=== PATIENT | female | born 2000 | race Caucasian/White ===

== ENCOUNTER 2020-02-11 04:21 | Inpatient (IN) | payer OTHER ==
[2020-02-11] MEDS ORDERED: AMPICILLIN 2,000 MG in SODIUM CHLORIDE 0.9% 100 ML IVPB STA (04:37)
[2020-02-11] MEDS ORDERED: CARBOPROST TROMETHAMINE 250 MCG/ML 1 ML AMP IM PRN (04:37)
[2020-02-11] MEDS ORDERED: LIDOCAINE 0.5% (PF) 5 MG/ML (50 ML SDV) SQ PRN (04:37)
[2020-02-11] MEDS ORDERED: OXYTOCIN 10 UNIT/ML 1 ML VIAL IM PRN (04:37)
[2020-02-11] MEDS ORDERED: METHYLERGONOVINE 0.2 MG/ML 1 ML AMP IM PRN (04:37)
[2020-02-11] MEDS ORDERED: TERBUTALINE 1 MG/ML VIAL SQ PRN (04:37)
[2020-02-11] MEDS: LACTATED RINGERS 1,000 ML IV SCH ×2 (05:33→20:19)
[2020-02-11 06:14] LABS: Basophils % (A) 0 %; Eosinophils # (A) 0.2 k/uL (0-0.7); Eosinophils % (A) 2 %; HCT 37.5 % (34.0-46.0); HGB 12.8 gm/dL (11.4-16.0); Lymphocytes # (A) 1.3 k/uL (1.0-4.8); Lymphocytes % (A) 11 %; MCH 31.5 pg (25.0-35.0); MCHC 34.1 g/dL (31.0-37.0); MCV 92.4 fL (80.0-100.0); Mean Platelet Volume 9.7; Monocytes % (A) 9 %; Neutrophils % (A) 78 %; Platelet Count 140 k/uL (150-450); RBC 4.06 m/uL (3.80-5.40); RDW 13.1 % (11.5-15.5); WBC 11.6 k/uL (4.0-11.0)
[2020-02-11] MEDS ORDERED: BENZOCAINE/MENTHOL SPRAY 1 GM/SPRAY AEROSOL TOPICAL PRN (07:59)
[2020-02-11] MEDS ORDERED: HYDROCORTISONE 2.5% RECTAL CREAM 30 GM TUBE RECTAL PRN (07:59)
[2020-02-11] MEDS ORDERED: ZOLPIDEM 5 MG TAB PO PRN (07:59)
[2020-02-11] MEDS ORDERED: SIMETHICONE 80 MG CHEWABLE PO PRN (07:59)
[2020-02-11] MEDS ORDERED: diphenhydrAMINE 25 MG CAP PO PRN (07:59)
[2020-02-11] MEDS ORDERED: diphenhydrAMINE 50 MG/ML 1 ML VIAL IVP PRN ×2 (07:59)
[2020-02-11] MEDS ORDERED: WITCH HAZEL 1 EACH MED..PAD TOPICAL PRN (07:59)
[2020-02-11] MEDS ORDERED: ACETAMINOPHEN TAB 325 MG TAB PO PRN (07:59)
[2020-02-11] MEDS ORDERED: LANOLIN CREAM 5 GM TUBE TOPICAL PRN (07:59)
[2020-02-11] MEDS ORDERED: diphenhydrAMINE 50 MG CAP PO PRN (07:59)
[2020-02-11] MEDS ORDERED: IBUPROFEN 600 MG TAB PO PRN (07:59)
[2020-02-11] MEDS ORDERED: OXYTOCIN 20 UNITS/1000 ML NS 1,000 ML IV SCH (08:00)
--- NOTE | 2020-02-11 08:01 | P.HPOB ---
History of Present Illness H&P Date: 02/11/20 Chief Complaint: Intrauterine term: Active labor Paola is a 19-year-old G 2 P0 at 39 and 6. Her Precis course has been unremarkable other than a cord plexus cyst which resolved by 25 weeks. Otherwise she relatesissues or problems her to be strep status is positive and will receive antibiotics prophylactically. Blood type is A+ Rh antibody was negative, rubella was immune. She is in active labor and had plans to use epidural but went very rapidly from 4 cm to complete. heart tones show a category 1 tracing and all questions were answered for her. Past Medical History Past Medical History: No Reported History History of Any Multi-Drug Resistant Organisms: None Reported Past Surgical History: No Surgical Hx Reported Past Anesthesia/Blood Transfusion Reactions: No Reported Reaction Past Psychological History: No Psychological Hx Reported Smoking Status: Current every day smoker Past Alcohol Use History: None Reported Past Drug Use History: None Reported - Past Family History Father Family Medical History: No Reported History Medications and Allergies Home Medications Medication Instructions Recorded Confirmed Type Pnv,Calcium 72/Iron/Folic Acid 1 tab PO DAILY 02/11/20 02/11/20 History [ Plus Tablet] Allergies Allergy/AdvReac Type Severity Reaction Status Date / Time No Known Allergies Allergy Verified 02/11/20 04:23 Exam Osteopathic Statement: *. No significant issues noted on an osteopathic structural exam other than those noted in the History and Physical/Consult. Vital Signs Temp Pulse Resp BP Pulse Ox 02/11/20 05:26 96.7 F L 87 16 136/74 97 02/11/20 04:49 96.7 F L 87 16 136/74 97 Intake and Output 02/10/20 02/11/20 02/11/20 22:59 06:59 14:59 Other: # Voids 2 Weight 71.668 kg - OBG Physical Exam Breast: both: normal (no masses) Abdomen: bowel sounds normal, no diffuse tenderness, no bruit present, no guarding noted, no hepatomegaly, no splenomegaly, no mass Vulva: both: normal Vagina: normal moisture, no discharge Cervix: no lesion, no discharge Uterus: normal size, normal contour Adnexa: both: normal Anus/Rectum: normal perianal skin, no rectal mass, no hemorrhoids, heme negative Results Result Diagrams: 02/11/20 05:57 Abnormal Lab Results - Last 24 Hours (Table) 02/11/20 Range/Units 05:57 WBC 11.6 H (4.0-11.0) k/uL Plt Count 140 L (150-450) k/uL Neutrophils # 9.0 H (1.3-7.7) k/uL
--- NOTE | 2020-02-11 08:02 | P.PROBDLV ---
Vaginal Delivery Note - . Vaginal Delivery Note: Paola progressed complete and pushing with spontaneous vaginal delivery of a viable male over a second-degree midline laceration. Following delivery of the head a nuchal cord 1 was noted and easily reduced. Baby was delivered from left occiput anterior position. Once baby was fully delivered mouth nares were bulb suctioned and baby was placed on mother's abdomen where the umbilical cord was allowed to pulsate for 45 seconds prior to clamping and cutting. Nursery personnel was present and assumed care. Placenta was then delivered intact Pitocin was added to the IV. Laceration was then repaired with 3-0 Vicryl following 1% Xylocaine for analgesia. Both mother and baby are stable following delivery. scores are pending but weight was 6 lbs. 5 oz.
[2020-02-11] MEDS: SENNOSIDES-DOCUSATE SODIUM 1 EACH TAB PO SCH ×2 (20:05→21:00)
[2020-02-11] MEDS: AMPICILLIN 1,000 MG in SODIUM CHLORIDE 0.9% 50 ML IVPB SCH (20:20)
[2020-02-12 06:54] LABS: Basophils % (A) 0 %; Eosinophils # (A) 0.2 k/uL (0-0.7); Eosinophils % (A) 1 %; HCT 36.5 % (34.0-46.0); HGB 12.5 gm/dL (11.4-16.0); Lymphocytes # (A) 2.3 k/uL (1.0-4.8); Lymphocytes % (A) 20 %; MCH 31.8 pg (25.0-35.0); MCHC 34.3 g/dL (31.0-37.0); MCV 92.6 fL (80.0-100.0); Mean Platelet Volume 9.8; Monocytes # (A) 1.2 k/uL (0-1.0); Monocytes % (A) 10 %; Neutrophils # (A) 8.1 k/uL (1.3-7.7); Neutrophils % (A) 68 %; Platelet Count 143 k/uL (150-450); RBC 3.95 m/uL (3.80-5.40); RDW 12.9 % (11.5-15.5); WBC 11.9 k/uL (4.0-11.0)
--- NOTE | 2020-02-12 08:31 | P.PNOBGVD ---
Subjective - Subjective Principal diagnosis: Status post vaginal delivery day #1 Interval history: Patient is doing okay. Lochia is decreasing. Pain is well-controlled. Baby is bottle feeding. Patient reports: Reports appetite normal, Reports voiding normally, Reports pain well controlled, Reports ambulating normally : doing well, bottle feeding Objective - Latest Vital Signs Latest vital signs: Vital Signs Temp Pulse Resp BP Pulse Ox 02/12/20 07:49 98.2 F 56 L 14 105/54 99 02/12/20 00:00 98.4 F 69 14 125/75 97 02/11/20 20:00 98.8 F 83 16 135/63 97 02/11/20 16:00 98.2 F 67 20 120/65 02/11/20 12:00 98.6 F 69 16 128/82 02/11/20 10:15 75 16 115/80 02/11/20 09:45 96.0 F L 68 16 119/65 02/11/20 09:05 64 16 120/81 02/11/20 08:50 72 16 123/56 02/11/20 08:35 59 L 16 132/73 Intake and Output 02/11/20 02/12/20 02/12/20 22:59 06:59 14:59 Other: # Voids 1 1 3 - Exam Extremities: Present: normal. Absent: tenderness Abdomen: Present: normal appearance, soft. Absent: distention, tenderness Uterus: Present: normal, firm. Absent: tenderness - Labs Labs: Abnormal Lab Results - Last 24 Hours (Table) 02/12/20 Range/Units 06:19 WBC 11.9 H (4.0-11.0) k/uL Plt Count 143 L (150-450) k/uL Neutrophils # 8.1 H (1.3-7.7) k/uL Monocytes # 1.2 H (0-1.0) k/uL Assessment and Plan Assessment: Status post vaginal delivery day #1 Plan: Will continue with care today. Baby has a positive blood culture and therefore cannot be discharged today.
[2020-02-12] MEDS: SENNOSIDES-DOCUSATE SODIUM 1 EACH TAB PO SCH ×2 (15:48→20:00)
[2020-02-12 16:15] VITALS: RESP 16
[2020-02-13 09:43] VITALS: BP 109/60; PULSE 53; TEMP 97.7
[2020-02-13] MEDS: SENNOSIDES-DOCUSATE SODIUM 1 EACH TAB PO SCH (09:44)
--- NOTE | 2020-02-13 10:50 | P.DS ---
Providers Date of admission: 02/11/20 04:59 Expected date of discharge: 02/13/20 Attending physician: Deepa Solis Primary care physician: Stated None Hospital Course: This is a 19-year-old female 2 para 0 at 39-6/7 weeks who presents for spontaneous rupture of membranes. She delivered vaginally a viable male on 02/11/2020 with scores of 8 at 1 minute and 9 at 5 minutes and infant weight of 6 pounds 5.2 ounces. She only received 1 dose of antibiotic for group B streptococcus before delivery. Baby has been in level I nursery due to positive blood culture. She is bottle feeding. Lochia is decreasing. Her pain is well-controlled. Vital signs are stable. Abdomen is soft with fundus firm and nontender. Extremities show negative Homans. Impression is status post vaginal delivery day #2. Plan is to discharge home today. Routine instructions are given. She will be given a prescription for ibuprofen. She is advised to follow up in the office in 6 weeks for a check. She is advised to call the office if she has any further questions or concerns prior to her appointment time. Procedures: Spontaneous vaginal delivery of a viable male infant on 02/11/2020 Patient Condition at Discharge: Stable Plan - Discharge Summary New Discharge Prescriptions: No Action Pnv,Calcium 72/Iron/Folic Acid [ Plus Tablet] 1 tab PO DAILY Discharge Medication List Pnv,Calcium 72/Iron/Folic Acid [ Plus Tablet] 1 tab PO DAILY 02/11/20 [History] Follow up Appointment(s)/Referral(s): Deepa Solis DO [Doctor of Osteopathic Medicine] - 6 Weeks Activity/Diet/Wound Care/Special Instructions: Instructions 1. Do not begin any exercise program for 3 weeks. 2. Do not resume sexual relations for 3 weeks or longer if uncomfortable. 3. You may take tub baths or showers at any time. 4. You may use tampons if desired after 3 weeks. 5. Keep the area of episiotomy (stitches) clean and dry. 6. If you are not nursing, wear a good fitting, supportive bra during the day and limit fluid intake for at least 1 week to prevent breast engorgement. 7. Call the office, [phone], within the next week to make appointment for your 6 week checkup if it has not already been made. 8. Report any of the following occurrences to the doctor promptly: a. Heavy, excessive bleeding b. Chills, fever c. Burning or frequency of urination d. Pain or redness and breasts if nursing e. Increasing pain or swelling in episiotomy (stitches). In addition to the above instructions, the following additional should be followed: 1. No heavy lifting or straining (exercising) until after 6 week checkup. 2. Keep abdominal incision clean and dry: You may wear a dressing if more comfortable. 3. Make office appointment for 10 days after going home or as instructed by her doctor. Discharge Disposition: HOME SELF-CARE
== END 2020-02-13 15:00 | disposition home or self-care (01) | DRG 807 ==
LOC: FBPOP 04:21 → 4FBP 04:59
PROVIDERS: ADMIT Obstetrics & Gynecology; ATTEND Obstetrics & Gynecology
PROC: 0KQM0ZZ Repair Perineum Muscle, Open Approach (ICD-10-PCS; principal; 2020-02-11)
PROC: 10E0XZZ Delivery of Products of Conception, External Approach (ICD-10-PCS; principal; 2020-02-11)
DX: O69.81X0 Labor and delivery complicated by cord around neck, without compression, not applicable or unspecified (principal); Z37.0 Single live birth; O99.824 Streptococcus B carrier state complicating childbirth; O70.1 Second degree perineal laceration during delivery; F17.200 Nicotine dependence, unspecified, uncomplicated; O99.334 Smoking (tobacco) complicating childbirth; Z3A.39 39 weeks gestation of pregnancy
CPT/HCPCS: 59025; 84112; 85025; 86850; 86900; 86901; 99213

== ENCOUNTER → 2020-09-16 | Outpatient (CLI) | payer OTHER ==
[2020-09-16 15:07] LABS: Basophils # (A) 0.08 X 10*3/uL (0.00-0.10); Basophils % (A) 0.6 %; Eosinophils # (A) 0.14 X 10*3/uL (0.04-0.35); HCT 33.6 % (37.2-46.3); HGB 10.3 g/dL (12.0-15.0); Lymphocytes # (A) 1.55 X 10*3/uL (0.90-5.00); Lymphocytes % (A) 11.2 %; MCH 28.5 pg (27.0-32.0); MCHC 30.7 g/dL (32.0-37.0); MCV 93.1 fL (80.0-97.0); Mean Platelet Volume 10.4 fL (9.5-12.2); Monocytes # (A) 1.44 X 10*3/uL (0.20-1.00); Monocytes % (A) 10.4 %; Neutrophils # (A) 10.28 X 10*3/uL (1.80-7.70); Neutrophils % (A) 74.2 %; Platelet Count 364 X 10*3/uL (140-440); RBC 3.61 X 10*6/uL (4.10-5.20); RDW 14.6 % (11.5-14.5); WBC 13.85 X 10*3/uL (4.50-10.00)
[2020-09-16 15:56] LABS: African American GFR (CKD) 106.7 (60.0-200.0); Albumin 4.2 g/dL (3.80-4.90); Albumin/Globulin Ratio 1.83 (1.60-3.17); Anion Gap 7.3 mmol/L (4.00-12.00); BUN/Creat Ratio 11.11 Ratio (12.00-20.00); Calcium 8.8 mg/dL (8.7-10.3); Carbon Dioxide 28.7 mmol/L (21.6-31.8); Chol/HDL Ratio 6.41; Globulin 2.3 g/dL (1.6-3.3); LDL Cholesterol,Calculated 124.4 mg/dL (0.0-131.0); Potassium 4.1 mmol/L (3.5-5.5); Total Bilirubin 0.5 mg/dL (0.3-1.2); Total Protein 6.5 g/dL (6.2-8.2); VLDL Calculation 21.6 mg/dL (5.00-40.00)
[2020-09-16 16:04] LABS: T4, Free (Free Thyroxine) 1.3 ng/dL (0.83-1.43)
== END | disposition home or self-care (01) ==
LOC: LABWHC1 09:45
PROVIDERS: ATTEND Nurse Practitioner Family
DX: Z00.00 Encounter for general adult medical examination without abnormal findings (principal); Z20.9 Contact with and (suspected) exposure to unspecified communicable disease
CPT/HCPCS: 36415; 80053; 80061; 84439; 84443; 85025; 86803

== ENCOUNTER → 2022-07-05 | Outpatient (CLI) | payer OTHER ==
[2022-07-05 23:05] LABS: Basophils # (A) 0.07 X 10*3/uL (0.00-0.10); Basophils % (A) 0.9 %; Eosinophils # (A) 0.32 X 10*3/uL (0.04-0.35); Eosinophils % (A) 4.2 %; HCT 40.4 % (37.2-46.3); HGB 13.2 g/dL (12.0-15.0); Immature Grans, Automated 0.3 %; Lymphocytes # (A) 1.81 X 10*3/uL (0.90-5.00); Lymphocytes % (A) 23.8 %; MCH 29.8 pg (27.0-32.0); MCHC 32.7 g/dL (32.0-37.0); MCV 91.2 fL (80.0-97.0); Mean Platelet Volume 10.8 fL (9.5-12.2); Monocytes # (A) 0.93 X 10*3/uL (0.20-1.00); Monocytes % (A) 12.2 %; NRBC Per 100 WBC 0 /100 WBCS (0.0-0.0); Neutrophils # (A) 4.47 X 10*3/uL (1.80-7.70); Neutrophils % (A) 58.6 %; Platelet Count 281 X 10*3/uL (140-440); RBC 4.43 X 10*6/uL (4.10-5.20); RDW 11.9 % (11.5-14.5); WBC 7.62 X 10*3/uL (4.50-10.00)
[2022-07-06] LABS: ALT 20 U/L (8-44); AST 19 U/L (13-35); African American GFR (CKD) 110.8 (60.0-200.0); Albumin 4.7 g/dL (3.8-4.9); Albumin/Globulin Ratio 2.06 (1.60-3.17); Alkaline Phosphatase 95 U/L (41-126); Blood Urea Nitrogen 13.1 mg/dL (9.0-27.0); Calcium 9.6 mg/dL (8.7-10.3); Carbon Dioxide 24.2 mmol/L (20.0-27.5); Chloride 105 mmol/L (96-109); Chol/HDL Ratio 2.82 Ratio; Globulin 2.3 g/dL (1.6-3.3); Glucose 87 mg/dL (70-110); LDL Cholesterol,Calculated 97.3 mg/dL (0.0-131.0); Non-African American GFR(CKD) 95.6 (60.0-200.0); Potassium 3.9 mmol/L (3.5-5.5); Sodium 141 mmol/L (135-145)
[2022-07-06 00:06] LABS: Hepatitis A Antibody IgM Nonreactive (Nonreactive); Hepatitis B Core IgM Nonreactive (Nonreactive); Hepatitis B Surface Antigen Nonreactive (Nonreactive); Hepatitis C IgG Antibody Nonreactive (Nonreactive)
[2022-07-06 04:17] LABS: HIV 2 AB Non-Reactive (Non-Reactive); HIV AB P24 Non-Reactive (Non-Reactive); HIV P24 AG Non-Reactive (Non-Reactive)
== END | disposition home or self-care (01) ==
LOC: LABWHC1 14:32
PROVIDERS: ATTEND Family Medicine
DX: Z00.00 Encounter for general adult medical examination without abnormal findings (principal); Z13.9 Encounter for screening, unspecified
CPT/HCPCS: 36415; 80053; 80061; 80074; 84439; 84443; 85025; 86592; 87390